=== PATIENT | female | born 1995 | race Caucasian/White ===

== ENCOUNTER → 2019-09-06 14:11 | Outpatient (BNVA) | payer SELFPAY | PROVIDERS: Family Provider Pediatrics Adolescent Medicine; PCP Family Medicine; Visit Provider Family Medicine | DX: J02.9 Acute pharyngitis, unspecified (principal) | CPT/HCPCS: 87070; 87880 ==

== ENCOUNTER 2022-08-23 08:00 | Emergency (ER) | payer MEDICAID, SELFPAY ==
[2022-08-23 08:07] VITALS: BP 125/79; PULSE 79; RESP 14; TEMP 36.8; O2SAT 100; BMI 31.1
--- NOTE | 2022-08-23 08:14 | ED_ITS ---
Documented by User: MARCO ANTONIO Mast 08/23/22 10:17 HPI - Back Pain/Injury General: Chief Complaint: Back Pain/Injury Stated Complaint: back pain, n/v Time Seen by Provider: 08/23/22 08:01 Source: patient Mode of arrival: ambulatory Limitations: no limitations History of Present Illness: Patient is a 27-year-old female presents to ED today with a complaint of acute onset right sided back pain that awoke her from sleep at roughly 5 AM this morning. She states since onset, the discomfort has been intermittent but states at its worst she rates it at a 10/10 and is extrem mell uncomfortable and states she is also had multiple episodes of nausea and vomiting secondary to pain. She does have periods where she is pain-free and is so at the time of my initial examination. He has no history of kidney stones. She has no urinary complaints at this time. No back injuries or trauma recently. Patient is currently on her menstrual cycle. No fevers. MD elicited complaint: back pain Onset (ago): hour(s) Timing: intermittent Severity: severe Similar Symptoms Previously: No Quality: sharp Location: right flank Radiation: abdomen Exacerbating factors: none Relieving factors: none Associated symptoms: Reports abdominal pain, nausea and vomiting; Deny chills, change in bowel habits, dysuria, fatigue, fever(s) or urinary urgency Work related injury: No Review of Systems Const: Denies: fever(s), chills, body aches, fatigue or malaise Card: Denies: chest pain Resp: Denies: dyspnea GI: Reports: abdominal pain, nausea and vomiting; Denies: diarrhea or change in bowel habits : Reports: flank pain and vaginal bleeding (currently on menstrual cycle); Denies: difficulty voiding, dysuria, urinary frequency, urinary urgency, urinary hesitancy, vaginal odor, vaginal discharge or pelvic pain Musc: Reports: back pain; Denies: neck pain, extremity pain or joint pain Skin/Breast: Denies: rash Neuro: Denies: headache(s), numbness in extremities, weakness in extremities or sensory changes [facility] ED PFSH: Medical History Seasonal allergies Surgical History No pertinent past surgical history Family History Family/Other Diabetes Stroke CAD (coronary artery disease) Hypothyroid Social History Smoking and tobacco status: never smoked Alcohol intake: unknown Physical Exam Const: COMMON NORMALS: no acute distress, patient oriented x3, no limitations, alert and well nourished GENERAL APPEARANCE: cooperative ORIENTATION/CONSCIOUSNESS: Yes awake, Yes oriented to person, Yes oriented to place and Yes oriented to time HENMT: COMMON NORMALS: normocephalic and atraumatic HEAD & SCALP: normal to inspection, normocephalic and atraumatic Resp: COMMON NORMALS: normal respiratory effort and clear to auscultation bilaterally AUSCULTATION: clear to auscultation bilaterally Cardio: COMMON NORMALS: regular rate and regular rhythm RATE: regular rate RHYTHM: regular rhythm GI: COMMON NORMALS: Normal to inspection, nondistended, normoactive bowel sounds present, Soft to palpation, non-tender, No hepatosplenomegaly present and no masses PALPATION: Yes Soft to palpation and Yes No hepatosplenomegaly present : COMMON NORMALS: Yes no CVA tenderness (states she was having pain here early this morning when pain started) BLADDER/KIDNEY EXAM: Yes no CVA tenderness (states she was having pain here early this morning when pain started) Back/Pelvis: COMMON NORMALS: no CVA tenderness (states she was having pain here early this morning when pain started), thoracic and lumbar spine normal to inspection, no thoracic nor lumbar tenderness, thoraco-lumbar ROM normal and straight leg raise negative bilaterally Extremity: COMMON NORMALS: normal to inspection GENERAL: Yes normal exam except as noted Neuro: COMMON NORMALS: patient oriented x3 SENSORIUM/ORIENTATION: Yes alert, Yes oriented to person, Yes oriented to place and Yes oriented to time Skin: COMMON NORMALS: no rashes or lesions noted GENERAL SKIN EXAM: no rashes or lesions noted Course Vital Signs: Vital signs: Vital Signs Temperature 98.2 F 08/23/22 08:07 Pulse Rate 87 08/23/22 09:48 Respiratory Rate 14 08/23/22 08:07 Blood Pressure 117/77 08/23/22 09:48 Pulse Oximetry 100 08/23/22 09:48 Oxygen Delivery Me thod 08/23/22 09:48 MDM - Back Pain/Injury Medical Decision Making Patient with a 3 mm stone at the right UVJ with associated mild hydroureteronephrosis. She has not really had much discomfort during her ED stay here. We will go ahead and send her home with pain and nausea meds that she can use IF needed/pain returns, flomax, urine strainer, and follow-up with urology. Return to ED precautions given. Labs 08/23/22 08:50 08/23/22 08:50 Radiology Impressions Abdomen/Pelvis CT 08/23/22 08:20 IMPRESSION: 1. Mild RIGHT hydroureteronephrosis secondary to a 3 mm calcification at the UV junction. 2. Normal appendix. 3. Additional nonobstructing bilateral nephrolithiasis. Laboratory Results WBC 8.2 10^3/uL (4.0-10.0) 08/23/22 08:50 RBC 4.80 10^6/uL (4.1-5.3) 08/23/22 08:50 Hgb 10.1 g/dL (11.5-15.3) L 08/23/22 08:50 Hct 35.7 % (37.0-47.0) L 08/23/22 08:50 MCV 74.4 fl (81-99) L 08/23/22 08:50 MCH 21.0 pg (28.0-34.0) L 08/23/22 08:50 MCHC 28.3 g/dL (30.0-36.0) L 08/23/22 08:50 RDW 15.8 % (12.1-15.1) H 08/23/22 08:50 Plt Count 247 10^3/cmm (130-400) 08/23/22 08:50 MPV 11.6 fL (7.4-10.4) H 08/23/22 08:50 Neut % (Auto) 74.1 % 08/23/22 08:50 Lymph % (Auto) 18.8 % 08/23/22 08:50 [place] % (Auto) 5.7 % 08/23/22 08:50 Eos % (Auto) 0.5 % 08/23/22 08:50 Baso % (Auto) 0.5 % 08/23/22 08:50 Neut # (Auto) 6.11 10^3/uL (1.8-7.7) 08/23/22 08:50 Lymph # (Auto) 1.6 10^3/uL (0.8-4.8) 08/23/22 08:50 [place] # (Auto) 0.5 10^3/uL (0.2-0.9) 08/23/22 08:50 Eos # (Auto) 0.0 10^3/uL (0.0-0.8) 08/23/22 08:50 Baso # (Auto) 0.0 10^3/uL (0.0-0.1) 08/23/22 08:50 Nucleated RBC % (auto) 0 % 08/23/22 08:50 Nucleated RBCs # 0.0 /100WBC 08/23/22 08:50 Sodium 138 mmol/L (136-145) 08/23/22 08:50 Potassium 4.0 mmol/L (3.5-5.1) 08/23/22 08:50 Chloride 106 mmol/L (98-107) 08/23/22 08:50 Carbon Dioxide 21 mmol/L (22-29) L 08/23/22 08:50 Anion Gap 15.0 (5-19) 08/23/22 08:50 BUN 9 mg/dL (6-20) 08/23/22 08:50 Creatinine 0.6 mg/dL (0.5-0.9) 08/23/22 08:50 GFR Calculation 119.9 mL/min (90-130) 08/23/22 08:50 Glucose 122 mg/dL (65-115) H 08/23/22 08:50 Calculated Osmolality 286 mOsm/kg (285-295) 08/23/22 08:50 Calcium 10.4 mg/dL (8.5-10.5) 08/23/22 08:50 Total Bilirubin 0.2 mg/dL (0.15-1.2) 08/23/22 08:50 AST 31 U/L (0-32) 08/23/22 08:50 ALT 15 U/L (0-33) 08/23/22 08:50 Alkaline Phosphatase 90 U/L (35-105) 08/23/22 08:50 Total Protein 6.8 g/dL (6.6-8.7) 08/23/22 08:50 Albumin 4.2 g/dL (3.5-5.2) 08/23/22 08:50 Globulin 2.6 g/dL (1.3-4.6) 08/23/22 08:50 Urine Color Yellow (Yellow) 08/23/22 08:35 Urine Appearance Cloudy (CLEAR) A 08/23/22 08:35 Urine pH 6.5 (5-7) 08/23/22 08:35 Ur Specific [place] 1.015 (1.005-1.030) 08/23/22 08:35 Urine Protein 1+ (Negative) H 08/23/22 08:35 Urine Glucose (UA) Norm (Normal) 08/23/22 08:35 Urine Ketones Negative (Negative) 08/23/22 08:35 Urine Blood 3+ (Negative) H 08/23/22 08:35 Urine Nitrate Negative (Negative) 08/23/22 08:35 Urine Bilirubin Neg (Negative) 08/23/22 08:35 Urine Urobilinogen Norm mg/dL (Negative) 08/23/22 08:35 Ur Leukocyte Esterase Negative (Negative) 08/23/22 08:35 Urine RBC Too numerous to cnt /hpf (0-2) H 08/23/22 08:35 Urine WBC 5-10 /hpf (0-5) H 08/23/22 08:35 Ur Squamous Epith Cells 0-4 /hpf (0-5) H 08/23/22 08:35 Amorphous Sediment Not Reportable 08/23/22 08:35 Urine Bacteria Trace /hpf (NONE) 08/23/22 08:35 Urine Mucus Trace /hpf 08/23/22 08:35 Urine HCG, Qual Negative (Negative) 08/23/22 08:35 Discharge Plan Discharge Patient Disposition: Home Clinical Impression: Calculus of distal right ureter Condition: Stable Prescriptions: New hydrocodone-acetaminophen 5-325 mg tablet 1 tab PO Q6H PRN (Reason: pain) Qty: 14 0RF Flomax 0.4 mg capsule 0.4 mg PO DAILY Qty: 10 0RF ondansetron 4 mg tablet,disintegrating 4 mg PO Q8H PRN (Reason: nausea and vomiting) Qty: 14 0RF No Action azithromycin [Zithromax Z-Karan] 250 mg tablet See Rx Instructions PO .COMPLEX Qty: 6 0RF Rx Instructions: take 500 mg today (day 1), then 250 mg for 4 days (days 2-5) PO Discharge Orders: Discharge ED (Routine); Ordered 08/23/22 Ordered By: Adalgisa Westfall Referrals: Ramiro Vieira MD [Physician] - Ara Agosto MD [Primary Care Provider] - Patient Instructions: How to Strain Your Urine (ED), Ureteral Stones (ED), Opioid Safety, Pain Management Activity Restrictions/Additional Instructions: As we discussed begin straining your urine and bring stone with you if you pass it to your follow-up appoint with Dr. Vieira. You may take pain and nausea medications as needed. Push fluids (water) as much as possible. You need to return to the emergency department for worsening or severe pain that is not controlled with your oral pain medications, repetitive episodes of vomiting, fevers, generally feeling unwell, or any other concerns you may have. Hope you begin to feel better soon. Coding Level of Care Code ED Historic Sites Registrar for Chg Fwd Exam Comprehensive Documented by User: Goyo Bay DO 08/23/22 18:30 HPI - Back Pain/Injury General: Chief Complaint: Back Pain/Injury Stated Complaint: back pain, n/v Time Seen by Provider: 08/23/22 08:01 [facility] ED 2 PFSH: Medical History Seasonal allergies Surgical History No pertinent past surgical history Family History Family/Other Diabetes Stroke CAD (coronary artery disease) Hypothyroid Social History Smoking and tobacco status: never smoked Alcohol intake: unknown Course Vital Signs: Vital signs: Vital Signs Temperature 98.2 F 08/23/22 08:07 Pulse Rate 87 08/23/22 09:48 Respiratory Rate 14 08/23/22 08:07 Blood Pressure 117/77 08/23/22 09:48 Pulse Oximetry 100 08/23/22 09:48 Oxygen Delivery Me thod 08/23/22 09:48 MDM - Back Pain/Injury Medical Decision Making Patient with a 3 mm stone at the right UVJ with associated mild hydroureterone phrosis. She has not really had much discomfort during her ED stay here. We will go ahead and send her home with pain and nausea meds that she can use IF needed/pain returns, flomax, urine strainer, and follow-up with urology. Return to ED precautions given. Chart reviewed and patient discussed with midlevel. Agree with assessment and plan. Labs 08/23/22 08:50 08/23/22 08:50 Radiology Impressions Abdomen/Pelvis CT 08/23/22 08:20 IMPRESSION: 1. Mild RIGHT hydroureteronephrosis secondary to a 3 mm calcification at the UV junction. 2. Normal appendix. 3. Additional nonobstructing bilateral nephrolithiasis. Laboratory Results WBC 8.2 10^3/uL (4.0-10.0) 08/23/22 08:50 RBC 4.80 10^6/uL (4.1-5.3) 08/23/22 08:50 Hgb 10.1 g/dL (11.5-15.3) L 08/23/22 08:50 Hct 35.7 % (37.0-47.0) L 08/23/22 08:50 MCV 74.4 fl (81-99) L 08/23/22 08:50 MCH 21.0 pg (28.0-34.0) L 08/23/22 08:50 MCHC 28.3 g/dL (30.0-36.0) L 08/23/22 08:50 RDW 15.8 % (12.1-15.1) H 08/23/22 08:50 Plt Count 247 10^3/cmm (130-400) 08/23/22 08:50 MPV 11.6 fL (7.4-10.4) H 08/23/22 08:50 Neut % (Auto) 74.1 % 08/23/22 08:50 Lymph % (Auto) 18.8 % 08/23/22 08:50 [place] % (Auto) 5.7 % 08/23/22 08:50 Eos % (Auto) 0.5 % 08/23/22 08:50 Baso % (Auto) 0.5 % 08/23/22 08:50 Neut # (Auto) 6.11 10^3/uL (1.8-7.7) 08/23/22 08:50 Lymph # (Auto) 1.6 10^3/uL (0.8-4.8) 08/23/22 08:50 [place] # (Auto) 0.5 10^3/uL (0.2-0.9) 08/23/22 08:50 Eos # (Auto) 0.0 10^3/uL (0.0-0.8) 08/23/22 08:50 Baso # (Auto) 0.0 10^3/uL (0.0-0.1) 08/23/22 08:50 Nucleated RBC % (auto) 0 % 08/23/22 08:50 Nucleated RBCs # 0.0 /100WBC 08/23/22 08:50 Sodium 138 mmol/L (136-145) 08/23/22 08:50 Potassium 4.0 mmol/L (3.5-5.1) 08/23/22 08:50 Chloride 106 mmol/L (98-107) 08/23/22 08:50 Carbon Dioxide 21 mmol/L (22-29) L 08/23/22 08:50 Anion Gap 15.0 (5-19) 08/23/22 08:50 BUN 9 mg/dL (6-20) 08/23/22 08:50 Creatinine 0.6 mg/dL (0.5-0.9) 08/23/22 08:50 GFR Calculation 119.9 mL/min (90-130) 08/23/22 08:50 Glucose 122 mg/dL (65-115) H 08/23/22 08:50 Calculated Osmolality 286 mOsm/kg (285-295) 08/23/22 08:50 Calcium 10.4 mg/dL (8.5-10.5) 08/23/22 08:50 Total Bilirubin 0.2 mg/dL (0.15-1.2) 08/23/22 08:50 AST 31 U/L (0-32) 08/23/22 08:50 ALT 15 U/L (0-33) 08/23/22 08:50 Alkaline Phosphatase 90 U/L (35-105) 08/23/22 08:50 Total Protein 6.8 g/dL (6.6-8.7) 08/23/22 08:50 Albumin 4.2 g/dL (3.5-5.2) 08/23/22 08:50 Globulin 2.6 g/dL (1.3-4.6) 08/23/22 08:50 Urine Color Yellow (Yellow) 08/23/22 08:35 Urine Appearance Cloudy (CLEAR) A 08/23/22 08:35 Urine pH 6.5 (5-7) 08/23/22 08:35 Ur Specific [place] 1.015 (1.005-1.030) 08/23/22 08:35 Urine Protein 1+ (Negative) H 08/23/22 08:35 Urine Glucose (UA) Norm (Normal) 08/23/22 08:35 Urine Ketones Negative (Negative) 08/23/22 08:35 Urine Blood 3+ (Negative) H 08/23/22 08:35 Urine Nitrate Negative (Negative) 08/23/22 08:35 Urine Bilirubin Neg (Negative) 08/23/22 08:35 Urine Urobilinogen Norm mg/dL (Negative) 08/23/22 08:35 Ur Leukocyte Esterase Negative (Negative) 08/23/22 08:35 Urine RBC Too numerous to cnt /hpf (0-2) H 08/23/22 08:35 Urine WBC 5-10 /hpf (0-5) H 08/23/22 08:35 Ur Squamous Epith Cells 0-4 /hpf (0-5) H 08/23/22 08:35 Amorphous Sediment Not Reportable 08/23/22 08:35 Urine Bacteria Trace /hpf (NONE) 08/23/22 08:35 Urine Mucus Trace /hpf 08/23/22 08:35 Urine HCG, Qual Negative (Negative) 08/23/22 08:35 Discharge Plan Discharge Patient Disposition: Home Clinical Impression: Calculus of distal right ureter Condition: Stable Prescriptions: New hydrocodone-acetaminophen 5-325 mg tablet 1 tab PO Q6H PRN (Reason: pain) Qty: 14 0RF Flomax 0.4 mg capsule 0.4 mg PO DAILY Qty: 10 0RF ondansetron 4 mg tablet,disintegrating 4 mg PO Q8H PRN (Reason: nausea and vomiting) Qty: 14 0RF No Action azithromycin [Zithromax Z-Karan] 250 mg tablet See Rx Instructions PO .COMPLEX Qty: 6 0RF Rx Instructions: take 500 mg today (day 1), then 250 mg for 4 days (days 2-5) PO Discharge Orders: Discharge ED (Routine); Ordered 08/23/22 Ordered By: Adalgisa Westfall Referrals: Ramiro Vieira MD [Physician] - Ara Agotso MD [Primary Care Provider] - Patient Instructions: How to Strain Your Urine (ED), Ureteral Stones (ED), Opioid Safety, Pain Management Activity Restrictions/Additional Instructions: As we discussed begin straining your urine and bring stone with you if you pass it to your follow-up appoint with Dr. Vieira. You may take pain and nausea medications as needed. Push fluids (water) as much as possible. You need to return to the emergency department for worsening or severe pain that is not controlled with your oral pain medications, repetitive episodes of vomiting, fevers, generally feeling unwell, or any other concerns you may have. Hope you begin to feel better soon. Coding Level of Care Code ED Historic Sites Registrar for Jang Fwd Exam Comprehensive
--- NOTE | 2022-08-23 08:20 | CT_ITS ---
WS: [id number] CT ABDOMEN AND PELVIS NONCONTRAST HISTORY: R back/flank/abdominal pain TECHNIQUE: Imaging performed through the abdomen and pelvis. Coronal and sagittal reformats are submi tted. All CT scans at [facility] use at least one of these dose optimization techniques: auto mated exposure control; mA and/or kV adjustment per patient size (includes targeted exams where dose is matched to clinical indication); or iterative reconstruction. DLP: 676.93 mGy.cm COMPARISON: None available. Lower thorax: Lung bases are clear. Visualized heart is normal. No hiatal hernia. Liver: Normal size liver. No mass or bile duct dilatation. Gallbladder: Normal gallbladder. Pancreas: Normal size and attenuation. Normal pancreatic duct. No pancreatitis or mass. Spleen: Normal. Adrenal glands: Normal. No mass. Right kidney: Mild RIGHT hydroureteronephrosis secondary to a 3 mm calcification at the UV junction. Additional nonobstructing calcification measures 2 mm in the lower pole. Left kidney: Nonobstructing 5.5 mm calcification upper pole. Aorta: Normal abdominal aorta, no aneurysm or atherosclerosis. No free fluid, intraperitoneal air or significant lymphadenopathy. GI tract: Normal appendix. No GI tract obstruction or diverticulosis. Abdominal wall: Negative. No hernia. Pelvis: Normal uterus and ovaries. No free fluid or adenopathy. Minimally distended urinary bladder. Osseous structures: Unremarkable. CT/CT kidney stone [id number] IMPRESSION: 1. Mild RIGHT hydroureteronephrosis secondary to a 3 mm calcification at the U V junction. 2. Normal appendix. 3. Additional nonobstructing bilateral nephrolithiasis.
[2022-08-23 08:42] VITALS: BP 120/77; PULSE 90; O2SAT 99
[2022-08-23 09:03] LABS: Basophils % 0.5 %; Eosinophils % 0.5 %; Hematocrit 35.7 % (37.0-47.0); Hemoglobin 10.1 g/dL (11.5-15.3); Lymphocytes # 1.6 10^3/uL (0.8-4.8); Lymphocytes % 18.8 %; Mean Corpuscular HGB Conc 28.3 g/dL (30.0-36.0); Mean Corpuscular Volume 74.4 fl (81-99); Mean Platelet Volume 11.6 fL (7.4-10.4); Monocytes # 0.5 10^3/uL (0.2-0.9); Monocytes % 5.7 %; Neutrophils # 6.11 10^3/uL (1.8-7.7); Neutrophils % 74.1 %; Nucleated Red Blood Cells % 0 %; Platelet Count 247 10^3/cmm (130-400); Red Cell Distribution Width 15.8 % (12.1-15.1); White Blood Count 8.2 10^3/uL (4.0-10.0)
[2022-08-23 09:12] VITALS: BP 120/77; PULSE 93; O2SAT 100
[2022-08-23 09:12] LABS: Add Urine Microscopic? YES; Bilirubin Urine Neg (Negative); Blood Urine 3+ (Negative); Glucose Urine UA Norm (Normal); Ketones Urine Negative (Negative); Leukocyte Esterase Urine Negative (Negative); Nitrate Urine Negative (Negative); Protein Urine 1+ (Negative); Specific Gravity, Urine 1.015 (1.005-1.030); Urine Appearance Cloudy (CLEAR); Urine Color Yellow (Yellow); Urobilinogen Urine Norm (Negative); pH Urine 6.5 (5-7)
[2022-08-23 09:13] LABS: RBC Urine TOO NUMEROUS TO CNT /hpf (0-2)
[2022-08-23 09:14] LABS: Add Urine Culture? Yes; Bacteria Urine TRACE /hpf; Mucus Urine TRACE /hpf; Squamous Epithelial Cell Urine 0-4 /hpf (0-5)
[2022-08-23 09:26] LABS: Alanine Aminotransferase 15 U/L (0-33); Albumin Level 4.2 g/dL (3.5-5.2); Alkaline Phosphatase 90 U/L (35-105); Aspartate Amino Transferase 31 U/L (0-32); Blood Urea Nitrogen 9 mg/dL (6-20); Calcium 10.4 mg/dL (8.5-10.5); Carbon Dioxide 21 mmol/L (22-29); Chloride 106 mmol/L (98-107); Creatinine Clr Calc Pharmacy 151.4762; Globulin 2.6 g/dL (1.3-4.6); Glomerular Filtration Rate 119.9 mL/min (90-130); Glucose 122 mg/dL (65-115); Osmolality Calculated 286 mOsm/kg (285-295); Sodium 138 mmol/L (136-145); Total Bilirubin 0.2 mg/dL (0.15-1.2); Total Protein 6.8 g/dL (6.6-8.7)
[2022-08-23 09:48] VITALS: BP 117/77; PULSE 87; O2SAT 100
--- NOTE | 2022-08-23 10:26 | DCPLANNER ---
Addendum entered by Zaira Bell 09/10/22 09:53: Patient had a follow up appointment scheduled with urology - this appointment was cancelled Addendum entered by Zaira Bell 08/24/22 13:50: Patient has a follow up appointment scheduled for Sunday, August 27, 2023 at 10:[address] clements at urology. clinic will call patient with appointment information. Original Note: desktop manager had message to schedule a follow up appointment for patient with urology. desktop manager sent patients information to front office staff at urology. Patients information will be printed and reviewed. Clinic will call patient with appointment information.
== END 2022-08-23 10:22 | disposition home or self-care (01) ==
PROVIDERS: Emergency Provider Physician Assistant; PCP Family Medicine
DX: N13.30 Unspecified hydronephrosis (principal); N20.1 Calculus of ureter
CPT/HCPCS: 74176; 80053; 81001; 81025; 85025; 87086; 99284

== ENCOUNTER 2022-09-28 06:53 | Emergency (ER) | payer MEDICAID, SELFPAY ==
[2022-09-28] VITALS (9 sets, daily range): BP systolic 125–150; BP diastolic 86–102; PULSE 89; RESP 16; TEMP 36.7; O2SAT 98–100; BMI 31.6
--- NOTE | 2022-09-28 07:28 | XR_ITS ---
WS: [id number] Exam: XR KUB portable [id number] Date/Time of Exam: 09/28/2022 7:29 AM Reason For Exam: abd pain /neprholithiasis No bowel obstruction or free air. No sign of organ enlargement. Bony structures are normal in appeara nce. XR/XR KUB portable [id number] IMPRESSION: 1. No acute abdominal process identified.
[2022-09-28 07:30] LABS: Basophils # 0.1 10^3/uL (0.0-0.1); Basophils % 0.5 %; Eosinophils # 0.1 10^3/uL (0.0-0.8); Eosinophils % 0.8 %; Hematocrit 40.3 % (37.0-47.0); Hemoglobin 11.1 g/dL (11.5-15.3); Lymphocytes # 2.6 10^3/uL (0.8-4.8); Lymphocytes % 25.3 %; Mean Corpuscular HGB Conc 27.5 g/dL (30.0-36.0); Mean Corpuscular Hemoglobin 20.1 pg (28.0-34.0); Mean Corpuscular Volume 73.1 fl (81-99); Mean Platelet Volume 11.5 fL (7.4-10.4); Monocytes # 0.8 10^3/uL (0.2-0.9); Monocytes % 8.2 %; Neutrophils # 6.62 10^3/uL (1.8-7.7); Nucleated Red Blood Cells % 0 %; Platelet Count 238 10^3/cmm (130-400); Red Blood Count 5.51 10^6/uL (4.1-5.3); Red Cell Distribution Width 16.3 % (12.1-15.1); White Blood Count 10.2 10^3/uL (4.0-10.0)
--- NOTE | 2022-09-28 07:30 | ED_ITS ---
HPI - Abdominal Pain General: Chief Complaint: Abdominal Pain Stated Complaint: left abd/side pain Time Seen by Provider: 09/28/22 07:18 Source: patient Mode of arrival: ambulatory History of Present Illness: 27-year-old female presents to the emergency room with complaint of left flank pain radiating into the groin. Began overnight. She has been seen for this previously last month on 1219 she was seen in the emergency room had CT done showed 2 stones on the right large 5.5 mm stone on the left 1 stone on the right was in the ureter the other stones were still within the kidney. She tells me she has had various discomfort she thinks she is passed both stones on the right now and is feeling like she has a stone passing on the left ureter today. She has not noticed any gross hematuria. She denies any dysuria urgency or frequency fever sweats or chills MD elicited complaint: flank pain (L) Pertinent past history: kidney stones Onset (ago): hour(s) Location: L flank Severity: moderate Quality: sharp Radiation: suprapubic Exacerbating factors: nothing Relieving factors: nothing Associated Symptoms: Denies anorexia, belching, bloating, change in bowel habits, change in stool character, chills, coffee ground emesis, constipation, GI cramping, diarrhea, dyspepsia, dysuria, excessive flatus, fever(s), heartburn, hematochezia, hematuria, hematemesis, fecal incontinence, loose stools, melena, nausea, poor appetite, syncope and vomiting Review of Systems Const: Denies: fever(s), chills, fatigue or malaise ENMT: Denies: throat pain, ear or mastoid pain, nasal discharge or nasal congestion Card: Denies: chest pain, palpitations or syncope Resp: Denies: dyspnea, productive cough or non-productive cough GI: Reports: abdominal pain; Denies: nausea, vomiting, hematemesis, coffee ground emesis, heartburn, diarrhea, constipation, bloating, GI cramping, belching, excessive flatus, fecal incontinence, change in bowel habits, change in stool character, hematochezia or melena : Reports: flank pain; Denies: difficulty voiding, dysuria, urinary frequency, urinary urgency or hematuria Skin/Breast: Denies: rash or pruritus PFSH ED PFSH: Medical History Seasonal allergies Surgical History No pertinent past surgical history Family History Family/Other Diabetes Stroke CAD (coronary artery disease) Hypothyroid Social History Smoking and tobacco status: never smoked Alcohol intake: unknown Physical Exam Const: GENERAL APPEARANCE: cooperative and comfortable ORIENTATION/CONSCIOUSNESS: Yes awake, Yes oriented to person, Yes oriented to place and Yes oriented to time HENMT: COMMON NORMALS: normocephalic, atraumatic and hearing grossly normal bilaterally HEAD & SCALP: normocephalic and atraumatic Resp: COMMON NORMALS: normal respiratory effort, No retractions, No use of accessory muscles and clear to auscultation bilaterally AUSCULTATION: clear to auscultation bilaterally Cardio: COMMON NORMALS: regular rate, regular rhythm and No murmurs present (Cardio) RATE: regular rate RHYTHM: regular rhythm GI: COMMON NORMALS: Soft to palpation and No hepatosplenomegaly present INSPECTION: No abdominal distension AUSCULTATION: Yes normoactive bowel sounds PALPATION: Yes Soft to palpation, No Tenderness to palpation present (GI), No Guarding due to palpation present (GI) and Yes No hepatosplenomegaly present PERCUSSION: normal to percussion : COMMON NORMALS: Yes no CVA tenderness BLADDER/KIDNEY EXAM: Yes no CVA tenderness Back/Pelvis: COMMON NORMALS: no CVA tenderness Extremity: COMMON NORMALS: normal to inspection, capillary refill normal, no clubbing, cyanosis or edema, no calf tenderness and no pedal edema Neuro: SENSORIUM/ORIENTATION: Yes oriented to person, Yes oriented to place and Yes oriented to time Skin: COMMON NORMALS: no rashes or lesions noted GENERAL SKIN EXAM: no rashes or lesions noted Course Vital Signs: Vital signs: Vital Signs Temperature 98.0 F 09/28/22 06:57 Pulse Rate 89 09/28/22 06:57 Respiratory Rate 16 09/28/22 10:23 Blood Pressure 125/86 09/28/22 10:00 Pulse Oximetry 98 09/28/22 09:30 Oxygen Delivery Me thod 09/28/22 07:59 MDM - Abdominal Pain Medical Decision Making Initially when I seen patient she reported no specific pain states she is actually feeling quite a bit better pretty much resolved after the work-up was completed and was back in the room to check on her and she states her pain was worsening again on the left flank. Review of the previous CT she had a 2 and 3 mm stone on the right and a 5.5 mm stone on the left. She describes having episodes of pain and then it being relieved however her description does not particularly sound like she actually passed the kidney stones far too brief and not nearly intense enough. Even now when she is complaining of pain on the left she is actually quite comfortable compared to what I would expect her to be if she actually had a kidney stone. Repeat abdominal exam is relatively unremarkable. We will repeat CT renal stone protocol. Repeat CT shows a 3.2 mm stone at the UVJ on the left. I talked to the radiologist he thinks that the stone identified is 5.5 may have been 2 there is still some calcification in that same region in the left kidney but the stone identified at the UVJ is only 3.2. I suspect she will be able to pass this on her own she has some contamination of urine but also has an elevated white count she not been having any dysuria Radames put her on Macrobid for 7 days. Continue tamsulosin 1 gave her hydrocodone and ondansetron to use as needed strain urine follow-up with urology Medical Records I reviewed the patient's medical records. Lab Data I reviewed the patient's lab results. 09/28/22 07:15 09/28/22 07:15 Labs/Radiology: Radiology Impressions KUB X-Ray 09/28/22 07:28 IMPRESSION: 1. No acute abdominal process identified. Abdomen/Pelvis CT 09/28/22 08:14 IMPRESSION: 1. Obstructing 3.2 mm calculus at the LEFT UVJ with LEFT hydroureter and mild LEFT hydronephrosis. Inflammatory stranding and edema about the LEFT kidney. 2. No other significant changes. Laboratory Results WBC 10.2 10^3/uL (4.0-10.0) H 09/28/22 07:15 RBC 5.51 10^6/uL (4.1-5.3) H 09/28/22 07:15 Hgb 11.1 g/dL (11.5-15.3) L 09/28/22 07:15 Hct 40.3 % (37.0-47.0) 09/28/22 07:15 MCV 73.1 fl (81-99) L 09/28/22 07:15 MCH 20.1 pg (28.0-34.0) L 09/28/22 07:15 MCHC 27.5 g/dL (30.0-36.0) L 09/28/22 07:15 RDW 16.3 % (12.1-15.1) H 09/28/22 07:15 Plt Count 238 10^3/cmm (130-400) 09/28/22 07:15 MPV 11.5 fL (7.4-10.4) H 09/28/22 07:15 Neut % (Auto) 65.0 % 09/28/22 07:15 Lymph % (Auto) 25.3 % 09/28/22 07:15 [place] % (Auto) 8.2 % 09/28/22 07:15 Eos % (Auto) 0.8 % 09/28/22 07:15 Baso % (Auto) 0.5 % 09/28/22 07:15 Neut # (Auto) 6.62 10^3/uL (1.8-7.7) 09/28/22 07:15 Lymph # (Auto) 2.6 10^3/uL (0.8-4.8) 09/28/22 07:15 [place] # (Auto) 0.8 10^3/uL (0.2-0.9) 09/28/22 07:15 Eos # (Auto) 0.1 10^3/uL (0.0-0.8) 09/28/22 07:15 Baso # (Auto) 0.1 10^3/uL (0.0-0.1) 09/28/22 07:15 Nucleated RBC % (auto) 0 % 09/28/22 07:15 Nucleated RBCs # 0.0 /100WBC 09/28/22 07:15 Sodium 138 mmol/L (136-145) 09/28/22 07:15 Potassium 4.2 mmol/L (3.5-5.1) 09/28/22 07:15 Chloride 104 mmol/L (98-107) 09/28/22 07:15 Carbon Dioxide 23 mmol/L (22-29) 09/28/22 07:15 Anion Gap 15.2 (5-19) 09/28/22 07:15 BUN 12 mg/dL (6-20) 09/28/22 07:15 Creatinine 0.7 mg/dL (0.5-0.9) 09/28/22 07:15 GFR Calculation 100.4 mL/min (90-130) 09/28/22 07:15 Glucose 101 mg/dL (65-115) 09/28/22 07:15 Calculated Osmolality 286 mOsm/kg (285-295) 09/28/22 07:15 Calcium 10.4 mg/dL (8.5-10.5) 09/28/22 07:15 Total Bilirubin 0.3 mg/dL (0.15-1.2) 09/28/22 07:15 AST 15 U/L (0-32) 09/28/22 07:15 ALT 14 U/L (0-33) 09/28/22 07:15 Alkaline Phosphatase 87 U/L (35-105) 09/28/22 07:15 Total Protein 7.5 g/dL (6.6-8.7) 09/28/22 07:15 Albumin 4.5 g/dL (3.5-5.2) 09/28/22 07:15 Globulin 3.0 g/dL (1.3-4.6) 09/28/22 07:15 Lipase 26 U/L (13-60) 09/28/22 07:15 HCG, Qual Negative (Negative) 09/28/22 07:20 Urine Color Yellow (Yellow) 09/28/22 07:20 Urine Appearance Hazy (CLEAR) A 09/28/22 07:20 Urine pH 5 (5-7) 09/28/22 07:20 Ur Specific [place] 1.015 (1.005-1.030) 09/28/22 07:20 Urine Protein Neg (Negative) 09/28/22 07:20 Urine Glucose (UA) Norm (Normal) 09/28/22 07:20 Urine Ketones Negative (Negative) 09/28/22 07:20 Urine Blood 2+ (Negative) H 09/28/22 07:20 Urine Nitrate Negative (Negative) 09/28/22 07:20 Urine Bilirubin Neg (Negative) 09/28/22 07:20 Urine Urobilinogen Norm mg/dL (Negative) 09/28/22 07:20 Ur Leukocyte Esterase 1+ (Negative) H 09/28/22 07:20 Urine RBC 5-10 /hpf (0-2) H 09/28/22 07:20 Urine WBC 5-10 /hpf (0-5) H 09/28/22 07:20 Ur Squamous Epith Cells 5-10 /hpf (0-5) H 09/28/22 07:20 Amorphous Sediment Not Reportable 09/28/22 07:20 Urine Bacteria 1+ /hpf (NONE) H 09/28/22 07:20 Urine Mucus 1+ /hpf 09/28/22 07:20 Discharge Plan Discharge Patient Disposition: Home Clinical Impression: Calculus of kidney Condition: Stable Prescriptions: New hydrocodone-acetaminophen 5-325 mg tablet 1 tab PO Q6H PRN (Reason: pain) Qty: 20 0RF ondansetron HCl 4 mg tablet 4 mg PO Q6H PRN (Reason: nausea and vomiting) Qty: 20 0RF tamsulosin 0.4 mg capsule 0.4 mg PO DAILY Qty: 14 0RF Macrobid 100 mg capsule 100 mg PO BID 7 Days Qty: 14 0RF Rx Instructions: must administer with a meal/food No Action azithromycin [Zithromax Z-Karan] 250 mg tablet See Rx Instructions PO .COMPLEX Qty: 6 0RF Rx Instructions: take 500 mg today (day 1), then 250 mg for 4 days (days 2-5) PO hydrocodone-acetaminophen 5-325 mg tablet 1 tab PO Q6H PRN (Reason: pain) Qty: 14 0RF Flomax 0.4 mg capsule 0.4 mg PO DAILY Qty: 10 0RF ondansetron 4 mg tablet,disintegrating 4 mg PO Q8H PRN (Reason: nausea and vomiting) Qty: 14 0RF Discharge Orders: Discharge ED (Routine); Ordered 09/28/22 Ordered By: [place] Referrals: Ara Agosto MD [Primary Care Provider] - Discharge Diet: Usual diet Discharge Activity: Increase activity as tolerated Activity Restrictions/Additional Instructions: You were seen today for kidney stone. The kidney stone on the left is about to drop into the bladder it is 3.2 mm is likely will pass spontaneously. He is the medicines given above. Case management will make arrangements for you to follow-up with urology. If pain is not controlled return to the emergency room. Coding Level of Care Code ED Parking [employer] for Harriet Olivares Exam Comprehensive
[2022-09-28 07:48] LABS: Alanine Aminotransferase 14 U/L (0-33); Albumin Level 4.5 g/dL (3.5-5.2); Alkaline Phosphatase 87 U/L (35-105); Aspartate Amino Transferase 15 U/L (0-32); Blood Urea Nitrogen 12 mg/dL (6-20); Calcium 10.4 mg/dL (8.5-10.5); Carbon Dioxide 23 mmol/L (22-29); Chloride 104 mmol/L (98-107); Creatinine Clr Calc Pharmacy 130.8742; Glomerular Filtration Rate 100.4 mL/min (90-130); Glucose 101 mg/dL (65-115); Lipase 26 U/L (13-60); Osmolality Calculated 286 mOsm/kg (285-295); Sodium 138 mmol/L (136-145); Total Bilirubin 0.3 mg/dL (0.15-1.2); Total Protein 7.5 g/dL (6.6-8.7)
[2022-09-28 07:49] LABS: Add Urine Microscopic? YES; Bilirubin Urine Neg (Negative); Blood Urine 2+ (Negative); Glucose Urine UA Norm (Normal); Ketones Urine Negative (Negative); Leukocyte Esterase Urine 1+ (Negative); Nitrate Urine Negative (Negative); Protein Urine Neg (Negative); Specific Gravity, Urine 1.015 (1.005-1.030); Urine Appearance Hazy (CLEAR); Urine Color Yellow (Yellow); Urobilinogen Urine Norm (Negative); pH Urine 5 (5-7)
[2022-09-28 07:51] LABS: Bacteria Urine 1+ /hpf; Mucus Urine 1+ /hpf
[2022-09-28 07:52] LABS: Add Urine Culture? Yes
[2022-09-28] MEDS: sodium chloride 0.9% 1,000 ML 999 ML IV (07:53)
[2022-09-28] MEDS: ondansetron 2 mg/ML SDV 2 mL 4 MG IVP (07:53)
[2022-09-28 08:05] LABS: HCG Qualitative Urine. Negative (Negative)
--- NOTE | 2022-09-28 08:14 | CT_ITS ---
WS: [id number] CT ABDOMEN PELVIS TECHNIQUE: Noncontrast CT of the abdomen and pelvis with coronal and sagittal reformatted images. CLINICAL INFORMATION: flank pain COMPARISON: CT August 23, 2022 DLP: 656.[address] scans at [facility] use at least one of these dose optimization techniques: automated e xposure control; mA and/or kV adjustment per patient size (includes targeted exams where dose is matc hed to clinical indication); or iterative reconstruction. FINDINGS: Mild LEFT hydronephrosis with inflammatory stranding and edema LEFT kidney. Mild LEFT hydroureter. Ob structing 3.2 mm calculus in the LEFT UVJ. Additional nonobstructing LEFT calyceal tip calculi. Previ ously described obstructing calculus at the RIGHT UVJ has resolved since August 23, 2022 Lung bases are well aerated. Noncontrast liver and gallbladder are normal. Normal noncontrast spleen. Tiny esophageal hiatal hernia. Adrenal glands are normal. Noncontrast pancreas is normal. Small RIGH T hepatic cyst measuring 6 mm. Normal sigmoid colon. No evidence of high-grade small or large bowel obstruction. Normal appendix in the RIGHT lower quadrant. Tiny fat-containing hernia. Normal caliber abdominal aorta. Physiologic mul tifollicular ovaries bilaterally. Trace free fluid in the cul-de-sac. A few incidental reactive lymph nodes along the mesenteric root and RIGHT lower quadrant unchanged from previous. CT/CT kidney stone [id number] IMPRESSION: 1. Obstructing 3.2 mm calculus at the LEFT UVJ with LEFT hydroureter and mild LEFT hydronephrosis. Inflammatory stranding and edema about the LEFT kidney. 2. No other significant changes.
[2022-09-28 08:25] LABS: Anion Gap 15.2 (5-19); Potassium 4.2 mmol/L (3.5-5.1)
[2022-09-28] MEDS: morphine 4 mg/mL SDV 1 mL IVP (08:44)
[2022-09-28] MEDS: morphine 4 mg/mL SDV 1 mL 2 MG IVP (10:23)
--- NOTE | 2022-09-28 13:58 | DCPLANNER ---
Addendum entered by Zaira Bell 10/01/22 11:25: irrigation manager called the [facility] urology clinic at phone number [phone], case management director was told that patient did receive patients information, clinic has tried to call patient unable to reach patient. irrigation manager called patient at phone number [phone] - left voicemail for patient to return case management director phone call. Addendum entered by Zaira Bell 09/30/22 15:28: irrigation manager received the following message from the urology clinic regarding follow up appointment: Need to send elsewhere Dr. Vieira is going out of town . irrigation manager spoke with patient and she stated that she would like to be referred to [facility]rology. irrigation manager called [facility] at [phone], spoke with the urology clinic fax number is [phone] - irrigation manager faxed patients information to the [facility] clinic. Patients information will be reviewed and clinic will call patient with appointment information. Original Note: irrigation manager had message to schedule a follow up appointment for patient with urology. irrigation manager sent patients information to the front office staff at urology. Patients information will be printed and reviewed. Clinic will call patient with appointment information.
== END 2022-09-28 10:29 | disposition home or self-care (01) ==
PROVIDERS: Physician Assistant; Emergency Provider Family Medicine; PCP Family Medicine
DX: N13.2 Hydronephrosis with renal and ureteral calculous obstruction (principal)
CPT/HCPCS: 74018; 74176; 80053; 81001; 81025; 83690; 85025; 87086; 96361; 96374; 96375; 96376; 99285; J2270; J2405; J7030

== ENCOUNTER → 2023-06-03 11:13 | Outpatient (BNVA) | payer MEDICAID, SELFPAY | PROVIDERS: PCP Family Medicine; Referring Provider Urology; Visit Provider Internal Medicine | DX: E05.90 Thyrotoxicosis, unspecified without thyrotoxic crisis or storm (principal); E21.3 Hyperparathyroidism, unspecified; N20.0 Calculus of kidney | CPT/HCPCS: 36415; 82306; 82310; 83970; 84100 ==

== ENCOUNTER 2023-06-23 08:38 | Outpatient (CLI) | payer MEDICAID, SELFPAY ==
--- NOTE | 2023-06-23 09:00 | NM_ITS ---
WS: [id number] EXAMINATION: NM parathyroid [id number] ORDER DATE: 06/23/2023 8:40 AM COMPARISON: None HISTORY: hyperparathyroidism TECHNIQUE: Parathyroid scintigraphy with 19.0 mCi of technetium 99 M sestamibi administered. AP and o blique views obtained with and without chin and suprasternal notch markers. Initial and 2 hour delayed imagi ng acquired. FINDINGS: Normal symmetric thyroid uptake on the initial imaging. Normal salivary gland uptake. No significant areas of retention to indicate parathyroid adenoma. No other suspicious findings. IMPRESSION: No radiotracer evidence of parathyroid adenoma.
== END 2023-06-23 08:39 | disposition home or self-care (01) ==
PROVIDERS: PCP Family Medicine; Visit Provider Internal Medicine
DX: E21.3 Hyperparathyroidism, unspecified (principal)
CPT/HCPCS: 78070; A9500

== ENCOUNTER → 2023-07-11 11:52 | Outpatient (BNVA) | payer MEDICAID, SELFPAY | PROVIDERS: PCP Family Medicine; Visit Provider Family Medicine | DX: N92.6 Irregular menstruation, unspecified (principal) | CPT/HCPCS: 85025 ==

== ENCOUNTER → 2023-08-25 10:31 | Outpatient (BNVA) | payer MEDICAID, SELFPAY | PROVIDERS: PCP Family Medicine; Visit Provider Internal Medicine | DX: E21.3 Hyperparathyroidism, unspecified (principal); N20.0 Calculus of kidney; E55.9 Vitamin D deficiency, unspecified | CPT/HCPCS: 36415; 80053; 82306; 82310; 83970; 84100 ==

== ENCOUNTER 2023-08-30 09:11 | Outpatient (CLI) | payer MEDICAID, SELFPAY ==
[2023-08-30 10:08] LABS: Phosphorus 2.3 mg/dL (2.5-4.5)
== END 2023-08-30 09:12 | disposition home or self-care (01) ==
LOC: LAB 09:11
PROVIDERS: PCP Family Medicine; Visit Provider Internal Medicine
DX: E21.3 Hyperparathyroidism, unspecified (principal); N20.0 Calculus of kidney
CPT/HCPCS: 36415; 84100

== ENCOUNTER → 2023-09-27 16:00 | Outpatient (BNVA) | payer MEDICAID, SELFPAY | PROVIDERS: PCP Family Medicine; Referring Provider Family Medicine; Visit Provider Nurse Practitioner Women's Health | DX: N93.9 Abnormal uterine and vaginal bleeding, unspecified (principal); D64.9 Anemia, unspecified; N92.6 Irregular menstruation, unspecified; Z12.4 Encounter for screening for malignant neoplasm of cervix | CPT/HCPCS: 82607; 82728; 82746; 83036; 83550; 84402; 84439; 84443; 84481; 84702; 85025; 88175 ==

== ENCOUNTER → 2023-10-03 13:03 | Outpatient (BNVA) | payer MEDICAID, SELFPAY | PROVIDERS: PCP Family Medicine; Visit Provider Obstetrics & Gynecology | DX: R79.89 Other specified abnormal findings of blood chemistry (principal) | CPT/HCPCS: 84443 ==

== ENCOUNTER → 2023-10-11 12:09 | Outpatient (BNVA) | payer MEDICAID, SELFPAY | PROVIDERS: PCP Family Medicine; Visit Provider Nurse Practitioner Women's Health | DX: D25.2 Subserosal leiomyoma of uterus (principal); N93.9 Abnormal uterine and vaginal bleeding, unspecified | CPT/HCPCS: 76830 ==

== ENCOUNTER 2023-10-18 14:50 | Outpatient (CLI) | payer MEDICAID, SELFPAY ==
[2023-10-18 15:48] LABS: Calcium 10.2 mg/dL (8.5-10.5)
[2023-10-18 15:53] LABS: Parathyroid Hormone 186.4 pg/mL (15-65)
[2023-10-18 16:12] LABS: 25 Hydroxy Vitamin D 17 ng/mL (30-100); Alanine Aminotransferase 13 U/L (0-33); Albumin Level 4.2 g/dL (3.5-5.2); Alkaline Phosphatase 106 U/L (35-105); Aspartate Amino Transferase 13 U/L (0-32); Blood Urea Nitrogen 7 mg/dL (6-20); Calcium 10.1 mg/dL (8.5-10.5); Carbon Dioxide 25 mmol/L (22-29); Chloride 109 mmol/L (98-107); Globulin 2.6 g/dL (1.3-4.6); Glucose 79 mg/dL (65-115); Osmolality Calculated 289 mOsm/kg (285-295); Phosphorus 1.9 mg/dL (2.5-4.5); Sodium 141 mmol/L (136-145); Total Bilirubin 0.3 mg/dL (0.15-1.2); Total Protein 6.8 g/dL (6.6-8.7)
== END 2023-10-18 14:51 | disposition home or self-care (01) ==
LOC: LAB 14:51
PROVIDERS: PCP Family Medicine; Visit Provider Internal Medicine
DX: E21.3 Hyperparathyroidism, unspecified (principal); N20.0 Calculus of kidney
CPT/HCPCS: 36415; 80053; 82306; 82310; 83970; 84100

== ENCOUNTER 2023-10-20 13:41 | Outpatient (CLI) | payer MEDICAID, SELFPAY ==
[2023-10-20 14:41] LABS: Urine Creatinine 103 mg/dL (28-217)
[2023-10-20 14:43] LABS: Total Volume Urine 1700 ml
[2023-10-20 14:44] LABS: Total Volume Urine 1700 ml
[2023-10-20 14:51] LABS: Calcium 24 Hour Urine 313 mg/24hr (100-300); Urine Calcium Result 18.4 mg/dL
== END 2023-10-20 13:42 | disposition home or self-care (01) ==
LOC: LAB 13:43
PROVIDERS: PCP Family Medicine; Visit Provider Internal Medicine
DX: N20.0 Calculus of kidney (principal); E21.3 Hyperparathyroidism, unspecified; E55.9 Vitamin D deficiency, unspecified
CPT/HCPCS: 82340; 82570

== ENCOUNTER 2023-11-01 13:41 | Day surgery (SDC) | payer MEDICAID, SELFPAY ==
--- NOTE | 2023-10-27 10:51 | P.ANESASSM_ITS ---
Pre-Anesthetic Assessment Height/Weight: Height 1.65 m Operation Date: 11/01/23 15:55 Proposed Procedures p Hysteroscopy, dilation and curettage with Myosure 31844,35315 N93.9, N84.0(Not Applicable) - Cortez Hoffman MD s Dilation And Curettage (D&C)(Not Applicable) - Cortez Hoffman MD Familial anesthetic complications: None Social No alcohol and No tobacco Exam alert, oriented x 3, clear to auscultation bilaterally and regular rate & rhythm Airway Mallampati: Class II Dentition: full Pulmonary None reported CV/HEM None reported None reported Hepatic None reported GI Gastroesophageal Reflux Disease (occasionally ) Metabolic Thyroid Disease Anesthetic Plan ASA status: 2 Anesthesia: General Risk of > 500 ml blood loss (7ml/kg in children): No Medications/Allergies Home Medications Medication Instructions Recorded Confirmed Last Taken Type ferrous gluconate 225 mg (27 mg 225 mg PO BID #60 tabs 09/30/23 10/27/23 1 Day Ago Rx iron) tablet ~10/26/23 Allergies Allergy/AdvReac Type Severity Reaction Status Date / Time dextromethorphan Allergy Unknown Unknown Verified 10/27/23 10:42 [From Guiatuss DM] [email or web address] Allergy Unknown Unknown Verified 10/27/23 10:42 [From Guiatuss DM] [facility] Anesthesia Medical History No pertinent past medical history neghx: htn,dm,dvt/pe PCP: Ara Agosto Seasonal allergies Surgical History No pertinent past surgical history Family History Family/Other Stroke CAD (coronary artery disease) Hypothyroidism Grandfather Heart disease Mother Hyperlipidemia Hypertension Stroke Thyroid disease Grandmother Hyperlipidemia Father Hypertension Denies family history of Colon cancer Ovarian cancer Prostate cancer Diabetes Breast cancer Uterine cancer Data Anesthesia Cardiac Studies: No Data to Display
[2023-11-01] VITALS (8 sets, daily range): BP systolic 109–147; BP diastolic 66–87; PULSE 75–101; RESP 16; TEMP 36.2–37.2; O2SAT 67–100; BMI 34.7
[2023-11-01 13:55] LABS: OR HCG Qualitative Urine Negative (Negative)
[2023-11-01] MEDS: sodium chloride 0.9% 1,000 ML 30 ML IV (14:10)
--- NOTE | 2023-11-01 14:28 | P.ANESUD_ITS ---
Pre-Anesthetic Update Pre-Anesthetic Assessment: Date of Surgery/Procedure: 11/01/23 Proposed Procedure: Operation Date: 11/01/23 15:25 Proposed Procedures p Hysteroscopy, dilation and curettage with Myosure 46039,57757 N93.9, N 84.0(Not Applicable) - Cortez Hoffman MD s Dilation And Curettage (D&C)(Not Applicable) - Cortez Hoffman MD Any changes to Pre-Anesthetic Assessment?: No Last Intake: Intake Last Liquid Date 10/31/23 Last Liquid Time 23:00 Last Solid Date 10/31/23 Last Solid Time 23:00 Vitals: Temperature 98.9 F 11/01/23 14:03 Temperature Source Temporal Artery S can 11/01/23 14:03 Pulse Rate 99 11/01/23 14:03 Pulse Rhythm Regular 11/01/23 14:11 Pulse Strength 3+ Normal 11/01/23 14:11 Respiratory Rate 16 11/01/23 14:03 Blood Pressure 124/87 11/01/23 14:03 Blood Pressure [place] n 99 11/01/23 14:03 Pulse Oximetry 97 11/01/23 14:03 Oxygen Delivery Me thod Room Air 11/01/23 14:11 Exam: Pre-Anes Outpt Exam: alert and oriented x 3 Cardiac Studies: No Data to Display
[2023-11-01 14:51] LABS: Alanine Aminotransferase 10 U/L (0-33); Alkaline Phosphatase 85 U/L (35-105); Anion Gap 11.1 (5-19); Aspartate Amino Transferase 19 U/L (0-32); Blood Urea Nitrogen 8 mg/dL (6-20); Calcium 10.3 mg/dL (8.5-10.5); Carbon Dioxide 22 mmol/L (22-29); Chloride 110 mmol/L (98-107); Creatinine Clr Calc Pharmacy 136.2274; Globulin 2.7 g/dL (1.3-4.6); Glomerular Filtration Rate 99.6 mL/min (90-130); Glucose 120 mg/dL (65-115); Osmolality Calculated 288 mOsm/kg (285-295); Potassium 4.1 mmol/L (3.5-5.1); Sodium 139 mmol/L (136-145); Total Bilirubin 0.4 mg/dL (0.15-1.2); Total Protein 6.7 g/dL (6.6-8.7)
[2023-11-01 14:53] LABS: Basophils % 0.4 %; Eosinophils # 0.1 10^3/uL (0.0-0.8); Eosinophils % 1.1 %; Hematocrit 44.9 % (36-47); Lymphocytes % 26.6 %; Mean Corpuscular HGB Conc 29.8 g/dL (30-55); Mean Corpuscular Hemoglobin 23.9 pg (27-33); Mean Platelet Volume 10.3 fL (7.4-10.4); Monocytes # 0.5 10^3/uL (0.2-0.9); Monocytes % 7.2 %; Neutrophils # 4.74 10^3/uL (1.8-7.7); Neutrophils % 64.4 %; Nucleated Red Blood Cells % 0 %; Platelet Count 249 10^3/cmm (157-399); Red Blood Count 5.61 10^6/uL (3.85-5.65); White Blood Count 7.36 10^3/uL (3.29-11.43)
[2023-11-01 15:17] LABS: Slide Review Slide Review Perform
--- NOTE | 2023-11-01 15:24 | P.HPUD_ITS ---
Surgery/Procedure H&P Update DATE OF PROCEDURE: November 01, 2023 DATE H&P PERFORMED: 10/19/23 H&P UPDATE INFORMATION: I have reviewed H&P completed within last 30 days, I have examined patient prior to procedure and No changes to prior documentation PLANNED PROCEDURE: Operation Date: 11/01/23 15:25 Proposed Procedures p Hysteroscopy, dilation and curettage with Myosure 57534,36753 N93.9, N84.0(No t Applicable) - Cortez Hoffman MD s Dilation And Curettage (D&C)(Not Applicable) - Cortez Hoffman MD
--- NOTE | 2023-11-01 16:56 | PM.OP ---
Operative Report Date of procedure: November 01, 2023 Pre-op diagnosis: Abnormal uterine bleeding Post-op diagnosis: Abnormal uterine bleeding Endometrial polyps Post-op findings: Endometrial polyps Procedure done: Hysteroscopy with Delation and curettage via MyoSure. Specimens removed/disposition: Endometrial curettings and polyps Surgeon: Cortez Hoffman MD Estimated blood loss (mL): 25 IV fluids (mL): 500 Complications: None Findings: Multiple endometrial polyps Procedure: After informed consent, the risks included but were not limited to bleeding, infection, injury to internal organs. The patient was counseled on a possible laparotomy and on the potential need for hysterectomy. The patient expressed understanding of the risks involved, all questions were answered, and the patient consented to the procedure. The patient was taken to the operating room where general anesthesia was administered. She was placed in the dorsal lithotomy position and prepped and draped in sterile fashion. A time out procedure was performed. The patient was examined under anesthesia and found to have a normal uterus with normal adnexa. A sterile weight speculum was placed in the vagina. The uterus was then gently sounded to 8 cm, and the cervix was dilated. The 0 degrees MyoSure hysteroscope was advanced gently to the uterine fundus while visualizing the monitor. Survey of the uterine cavity showed: Multiple endometrial polyps, the fundus shows normal proliferative endometrium; left ostium was visualized, and lateral wall with proliferative endometrium; right ostium visualized, and lateral wall with proliferative endometrium; anterior and posterior morgan are with proliferative endometrium; endocervical canal is normal. The MyoSure device was advanced and the direct visualization the polyp and endometrium were morcellated without complication. At the end of morcellation the fluid deficit was 365 mL and was estimated at approximately 250 mL were on the floor. There was minimal bleeding noted and the tenaculum removed with goad hemostasis noted. The patient tolerated the procedure well. The patient was taken to the recovery area in stable condition.
--- NOTE | 2023-11-02 06:21 | ANE.PACU2 ---
Inpatient post-anesthesia follow up: Airway intact: Yes Vital signs: Temperature 97.2 F Pulse Rate 86 Respiratory Rate 16 Blood Pressure 147/81 Pulse Oximetry 67 Oxygen Delivery Me thod Room Air Oxygen Flow Rate 8 Fraction of Inspir ed Oxygen Hydration adequate: Yes Nausea and vomiting: No Pain level: 2 Mental status: Baseline
== END 2023-11-01 17:54 | disposition home or self-care (01) ==
PROVIDERS: PCP Family Medicine; Visit Provider Obstetrics & Gynecology
PROC: 0UDB8ZZ Extraction of Endometrium, Via Natural or Artificial Opening Endoscopic (ICD-10-PCS; CPT 58558; principal; 2023-11-01 15:15)
PROC: (CPT 58120; 2023-11-01 15:15)
DX: N84.0 Polyp of corpus uteri (principal); K21.9 Gastro-esophageal reflux disease without esophagitis
CPT/HCPCS: 58558; 36415; 80053; 81025; 84703; 85025; 86850; 86900; 88305; J1100; J2250; J2405; J2704; J3010; J7030

== ENCOUNTER 2024-01-24 15:22 | Outpatient (CLI) | payer MEDICAID, SELFPAY ==
[2024-01-24 16:40] LABS: Alanine Aminotransferase 18 U/L (0-33); Albumin Level 4.2 g/dL (3.5-5.2); Alkaline Phosphatase 105 U/L (35-105); Anion Gap 13.7 (5-19); Aspartate Amino Transferase 14 U/L (0-32); Blood Urea Nitrogen 12 mg/dL (6-20); Calcium 10.2 mg/dL (8.5-10.5); Carbon Dioxide 24 mmol/L (22-29); Chloride 109 mmol/L (98-107); Globulin 3.2 g/dL (1.3-4.6); Glomerular Filtration Rate 99.6 mL/min (90-130); Glucose 110 mg/dL (65-115); Osmolality Calculated 294 mOsm/kg (285-295); Potassium 4.7 mmol/L (3.5-5.1); Sodium 142 mmol/L (136-145); Total Bilirubin 0.2 mg/dL (0.15-1.2); Total Protein 7.4 g/dL (6.6-8.7)
[2024-01-24 16:41] LABS: Calcium 10.6 mg/dL (8.5-10.5)
[2024-01-24 16:43] LABS: Parathyroid Hormone 148.7 pg/mL (15-65)
[2024-01-24 16:50] LABS: 25 Hydroxy Vitamin D 38 ng/mL (30-100)
== END 2024-01-24 15:23 | disposition home or self-care (01) ==
PROVIDERS: PCP Family Medicine; Visit Provider Internal Medicine
DX: E21.3 Hyperparathyroidism, unspecified (principal); E55.9 Vitamin D deficiency, unspecified
CPT/HCPCS: 36415; 80053; 82306; 82310; 83970

== ENCOUNTER 2024-04-24 16:05 | Outpatient (CLI) | payer MEDICAID, SELFPAY ==
[2024-04-24 17:49] LABS: Calcium 9.2 mg/dL (8.5-10.5); Parathyroid Hormone 47.8 pg/mL (15-65)
[2024-04-24 18:02] LABS: 25 Hydroxy Vitamin D 23 ng/mL (30-100)
== END 2024-04-24 16:06 | disposition home or self-care (01) ==
LOC: LAB 16:06
PROVIDERS: PCP Family Medicine; Visit Provider Internal Medicine
DX: E21.3 Hyperparathyroidism, unspecified (principal); N20.0 Calculus of kidney; E55.9 Vitamin D deficiency, unspecified
CPT/HCPCS: 36415; 82306; 82310; 83970

== ENCOUNTER → 2025-01-01 09:35 | Outpatient (BNVA) | payer MEDICAID, SELFPAY | PROVIDERS: Visit Provider Nurse Practitioner Family | DX: J02.9 Acute pharyngitis, unspecified (principal) | CPT/HCPCS: 87071; 87880 ==

== ENCOUNTER → 2025-03-19 12:49 | Outpatient (BNVA) | payer MEDICAID, SELFPAY | PROVIDERS: Visit Provider Nurse Practitioner Women's Health | DX: N93.9 Abnormal uterine and vaginal bleeding, unspecified (principal); R53.83 Other fatigue; D25.9 Leiomyoma of uterus, unspecified; R79.89 Other specified abnormal findings of blood chemistry | CPT/HCPCS: 82728; 83540; 85025 ==

== ENCOUNTER → 2025-03-26 11:20 | Outpatient (BNVA) | payer MEDICAID, SELFPAY | PROVIDERS: Visit Provider Nurse Practitioner Women's Health | DX: N92.6 Irregular menstruation, unspecified (principal); D25.1 Intramural leiomyoma of uterus | CPT/HCPCS: 76830 ==

== ENCOUNTER 2025-04-23 08:32 | Outpatient (CLI) | payer MEDICAID, SELFPAY ==
[2025-04-23 09:35] LABS: Calcium 8.6 mg/dL (8.5-10.5)
== END 2025-04-23 08:33 | disposition home or self-care (01) ==
PROVIDERS: Visit Provider Internal Medicine
DX: E21.3 Hyperparathyroidism, unspecified (principal); E55.9 Vitamin D deficiency, unspecified
CPT/HCPCS: 36415; 82306; 82310; 83970

== ENCOUNTER → 2025-05-02 12:33 | Outpatient (BNVA) | payer MEDICAID, SELFPAY | PROVIDERS: Visit Provider Internal Medicine | DX: E21.3 Hyperparathyroidism, unspecified (principal) | CPT/HCPCS: 80048; 82306; 82310; 83970; 84439; 84443 ==

== ENCOUNTER → 2025-07-23 08:58 | Outpatient (BNVA) | payer MEDICAID, SELFPAY | PROVIDERS: Visit Provider Nurse Practitioner Women's Health | DX: D25.2 Subserosal leiomyoma of uterus (principal); N93.9 Abnormal uterine and vaginal bleeding, unspecified; D64.9 Anemia, unspecified; R53.83 Other fatigue | CPT/HCPCS: 82728; 83540; 85025 ==

== ENCOUNTER 2025-08-06 11:48 | Oncology outpatient (recurring) (ONCR) | payer MEDICAID, SELFPAY ==
[2025-08-06 12:16] VITALS: BP 129/80; PULSE 100; TEMP 37.1; O2SAT 98
[2025-08-06] MEDS: iron sucrose 200 MG/100 ML BAG IV (12:29)
[2025-08-06 13:23] VITALS: BP 137/86; PULSE 90; TEMP 36.8; O2SAT 99
== END 2025-09-04 23:59 | disposition home or self-care (01) ==
PROVIDERS: Visit Provider Internal Medicine Medical Oncology
DX: D64.9 Anemia, unspecified (principal); Z79.899 Other long term (current) drug therapy
CPT/HCPCS: 96365; J1756; J7050